=== PATIENT | female | born 1955 | race Caucasian/White ===

== ENCOUNTER 2023-06-29 08:09 | Inpatient (IN) | payer MEDICARE ==
[~2023-06-29] VITALS: Ht 165.1 cm; Wt 83.2 kg
[~2023-06-29 08:09] MED LIST: Alprazolam ER0.5 MG PO; Alprazolam Xr0.5 MG PO; BREZTRI AEROS10.7 GM INH; DELTASONE20 MG PO; ESCI20 PO; ESCITALOPRA5 MG/5 ML PO; ESCITALOPRAM TAB 20M; MIRT15 PO; TRELEGY ELLIPT1 EACH IH; TRELEGY ELLIPT1 EACH INH; Ventolin/Prove6.7 GM
[2023-06-29] MEDS ORDERED: Albuterol 2.5 MG/3 ML VIAL INH SCH (08:15)
[2023-06-29 08:28] LABS: BASOPHILS ABSOLUTE AUTO 0.05 K/mm3 (0.00-0.23); BASOPHILS PERCENT AUTO 0 % (0-2); EOSINOPHILS ABSOLUTE AUTO 0.14 K/mm3 (0.00-0.68); EOSINOPHILS PERCENT AUTO 1 % (0-6); Hematocrit 41.8 % (33.0-51.0); Hemoglobin 13.3 g/dL (11.5-16.0); IMMATURE GRAN ABSOLUTE AUTO 0.09 K/mm3 (0.00-0.10); IMMATURE GRAN PERCENT AUTO 1 % (0-1); LYMPHOCYTES ABSOLUTE AUTO 3.31 K/mm3 (0.84-5.20); LYMPHOCYTES PERCENT AUTO 30 % (21-46); MONOCYTES ABSOLUTE AUTO 0.63 K/mm3 (0.16-1.47); MONOCYTES PERCENT AUTO 6 % (4-13); Mean Corpuscular HGB 32.4 pg (26.0-34.0); Mean Corpuscular HGB Conc 31.8 g/dL (31.5-36.5); Mean Corpuscular Volume 102 fL (80-100); Mean Platelet Volume 9.1 fL (9.1-12.4); NEUTROPHILS PERCENT AUTO 63 % (41-73); Platelet Count 349 K/mm3 (150-400); RDW Coefficient Variation 12.3 % (11.7-14.2); RDW Standard Deviation 45.6 fL (35.1-46.3); Red Blood Cell Count 4.11 M/mm3 (3.80-5.20); White Blood Cell Count 11.22 K/mm3 (4.00-11.30)
[2023-06-29 08:42] LABS: Albumin, Blood 2.6 g/dL (3.4-5.0); Albumin/Globulin Ratio 0.6 (0.8-1.8); Bilirubin, Total 0.5 mg/dL (0.1-1.0); Bun/Creatinine Ratio 36.8 (12.0-20.0); Calcium, Blood 8.5 mg/dL (8.5-10.1); Creatinine, Blood 0.41 mg/dL (0.40-1.00); Globulin, Blood 4.1 g/dL (2.2-4.0); Magnesium, Blood 2.1 mg/dL (1.6-2.4); Potassium, Blood 3.7 mmol/L (3.5-5.5); Total Protein, Blood 6.7 g/dL (6.4-8.2)
[2023-06-29 08:42] LABS: Base Excess Venous 6.1 mmol/L; Bicarbonate Venous 26.4 mmol/L (24.0-30.0); PCO2 Venous 92.9 mmHg (38-42)
[2023-06-29 08:44] LABS: pH Blood Venous 7.18 (7.34-7.37)
[2023-06-29 09:36] LABS: Adenovirus Not Detected (NOT DETECT); Coronavirus 229E Not Detected (NOT DETECT); Coronavirus HKU1 Not Detected (NOT DETECT); Coronavirus NL63 Not Detected (NOT DETECT); Coronavirus OC43 Not Detected (NOT DETECT); SARS-Cov-2 (COVID-19), BioFire Detected (NOT DETECT)
[2023-06-29 09:37] LABS: Human Metapneumovirus Not Detected (NOT DETECT)
[2023-06-29 09:38] LABS: Bordetella pertussis Not Detected (NOT DETECT); Chlamydophila pneumoniae Not Detected (NOT DETECT); Human Rhinovirus/Enterovirus Not Detected (NOT DETECT); Influenza A/2009-H1 Not Detected (NOT DETECT); Influenza A/H1 Not Detected (NOT DETECT); Influenza A/H3 Not Detected (NOT DETECT); Influenza B Not Detected (NOT DETECT); Mycoplasma pneumoniae Not Detected (NOT DETECT); Parainfluenza Virus 1 Not Detected (NOT DETECT); Parainfluenza Virus 2 Not Detected (NOT DETECT); Parainfluenza Virus 3 Not Detected (NOT DETECT); Parainfluenza Virus 4 Not Detected (NOT DETECT); Respiratory Syncytial Virus Not Detected (NOT DETECT)
[2023-06-29] MEDS ORDERED: NS 1,000 ML IV SCH ×2 (10:00→10:05)
[2023-06-29] MEDS ORDERED: Dexamethasone Sod Phos 10 MG/ML 1ML VIAL IV ONE (10:05)
[2023-06-29] MEDS ORDERED: Polyethylene Glycol 3350 17 gm PO PRN (10:45)
[2023-06-29] MEDS ORDERED: NS 500 ML IV SCH (10:50)
[2023-06-29] MEDS ORDERED: FLU VACC QS2023-24(6MOS UP)/PF 60 MCG/0.5 ML SYRINGE IM SCH (10:50)
[2023-06-29] MEDS ORDERED: Ondansetron HCl 2 MG / ML 2ML Vial IV PRN (10:50)
[2023-06-29] MEDS ORDERED: Remdesivir (EUA) 200 MG in NS 250 ML IV ONE (11:05)
[2023-06-29 14:45] VITALS: BP 116/72
[2023-06-29] MEDS ORDERED: Albuterol 2.5 MG/3 ML VIAL INH PRN (15:15)
[2023-06-29] MEDS ORDERED: ALPRAZolam 0.25 MG Tab PO PRN (17:25)
--- NOTE | 2023-06-29 18:33 | NUR ---
PT ARRIVED TO U06 VIA GURNEY FROM ED ON 3L NC WITH BIPAP AT BEDSIDE. PT IS A&OX4, ABLE TO MAKE NEEDS KNOWN AND USE CALL LIGHT FOR NEEDS. ADMISSION DOCUMENTATION COMPLETED, SEE ASSESSMENT AND VS. IT IS NOTED THAT PT HAS WHAT APPEARS TO BE A STAGE 2 PRESSURE ULCER TO HER COCCYX, MEPLEX APPLIED, DR CHADWICK NOTIFIED. HOME MEDICATION LIST HAS BEEN RECONCILLED AND MEDICATIONS ORDERED BY DR CHADWICK. PT TOLERATES BEING OFF BIPAP FOR PERIODS OF TIME, BUT DOES USE THE BIPAP AT TIMES. ORDER NOTED FOR PT TO USE HER BREZTRI INHAILER FROM HOME IT IS NOT FORMULARY AT THIS TIME. SON MICHAELA CONTACTED VIA CELL PHONE, MESSAGE LEFT. NO ACUTE CHANGES SINCE ADMISSION. WILL CONTINUE TO MONITOR AND GIVE REPORT TO NOC SHIFT RN.
[2023-06-29 20:47] VITALS: BP 137/83
[2023-06-29] MEDS ORDERED: GLYCOPYRROLATE INH SCH (21:00)
[2023-06-29] MEDS ORDERED: Mirtazapine 15 MG SoluTab PO SCH (21:00)
[2023-06-29] MEDS ORDERED: FORMOTEROL INH SCH (21:00)
[2023-06-29] MEDS ORDERED: BUDESONIDE INH SCH (21:00)
[2023-06-29 23:55] VITALS: BP 137/85
[2023-06-30 03:38] LABS: Hemoglobin 12.5 g/dL (11.5-16.0); Mean Corpuscular HGB 32.3 pg (26.0-34.0); Mean Corpuscular HGB Conc 32.9 g/dL (31.5-36.5); Mean Corpuscular Volume 98 fL (80-100); Mean Platelet Volume 8.8 fL (9.1-12.4); Platelet Count 312 K/mm3 (150-400); RDW Coefficient Variation 12.6 % (11.7-14.2); RDW Standard Deviation 44.2 fL (35.1-46.3); Red Blood Cell Count 3.87 M/mm3 (3.80-5.20); White Blood Cell Count 7.67 K/mm3 (4.00-11.30)
[2023-06-30 03:41] VITALS: BP 135/75
[2023-06-30 03:56] LABS: Albumin, Blood 2.4 g/dL (3.4-5.0); Anion Gap 2 mmol/L (3-11); Blood Urea Nitrogen 14 mg/dL (8-24); Bun/Creatinine Ratio 39.7 (12.0-20.0); CO2, Blood 36 mmol/L (21-32); Calcium, Blood 8.6 mg/dL (8.5-10.1); Chloride, Blood 106 mmol/L (98-108); Creatinine, Blood 0.35 mg/dL (0.40-1.00); Glomerular Filtration Rate 111 (60-); Glucose, Blood 132 mg/dL (70-99); Magnesium, Blood 2.1 mg/dL (1.6-2.4); Phosphorus, Blood 2.8 mg/dL (2.5-4.9); Potassium, Blood 3.5 mmol/L (3.5-5.5); Sodium, Blood 140 mmol/L (136-145)
--- NOTE | 2023-06-30 06:22 | NUR ---
Pt with uneventful shift tonight, able to rest comfortably on BiPap and appears to have slept well. Gave 1 dose of Xanax at 0345 when awoken for 0400 vitals. At that time pt reports she feels much better than upon admit. Home inhaler brought in by son and was relabeled by Pharmacy. RT aware and giving as ordered. Pt continues on Clear Liquid diet, given rationale and pt compliant though hopes to be advance today. Denies significant pain this shift, please see full assessment for further details. No additional complaints/concerns at this time, will continue to monitor.
[2023-06-30 08:03] VITALS: BP 132/70
[2023-06-30] MEDS ORDERED: Cholecalciferol 1000 Unit Tablet (=25MCG) PO SCH (09:00)
[2023-06-30] MEDS ORDERED: Dexamethasone Sod Phos 10 MG/ML 1ML VIAL IV SCH (09:00)
[2023-06-30] MEDS ORDERED: Citalopram Hydrobromide 20 MG Tab PO SCH (09:00)
[2023-06-30] MEDS ORDERED: Enoxaparin 40 MG/0.4 ML SYR SC SCH (09:00)
--- NOTE | 2023-06-30 10:14 | NUR ---
ASSUMED CARE OF PT AT 0700 THIS AM. PT IS RESTING QUIETLY IN BED WITH BIPAP IN PLACE AT START OF SHIFT. APROX 0800 PT REQUESTING ANXIETY MEDICATION. PT REPORTS SOB. PT GIVEN AM MEDICATIONS AND PLACED BACK ON BIPAP. PTs HR NOTED TO INCREASE TO 140-150s THIS AM, PT IS FEELING SOB ONCE AGAIN. PT IS TRANSPORTED TO CT PE STUDY, SHE IS ABLE TO STAND AND TRANSFER FROM THE BED TO THE WHEELCHAIR. PT RETURNED TO ROOM SHORTLY AFTER AND HR RETURNS TO LOW 100s. AWAITING CT RESULTS AT THIS TIME. PLAN OF CARE REVIEWED WITH DR CHADWICK WHEN HE ROUNDED ON THE PT THIS AM.
[2023-06-30] MEDS ORDERED: Albuterol 2.5 MG/3 ML VIAL INH SCH (11:35)
[2023-06-30] MEDS ORDERED: Remdesivir (EUA) 100 MG in NS 250 ML IV SCH (12:00)
[2023-06-30 12:12] VITALS: BP 118/77
[2023-06-30 16:24] VITALS: BP 106/76
[2023-06-30] MEDS ORDERED: Acetaminophen 325 MG TABLET PO PRN (17:20)
[2023-06-30] MEDS ORDERED: Thiamine HCl 100 MG Tab PO ONE (17:30)
--- NOTE | 2023-06-30 18:08 | NUR ---
ASSUMED CARE OF PT AT 0700 THIS AM. PT ON BIPAP 10/5 30% ON AND OFF T/O THE DAY. PT ABLE TO TOLERATE 3L 02 VIA NC WHEN OFF BIPAP. PT NOTED TO HAVE A RUN OF WHAT APPEARED TO BE AFIB RVR FOR A SHORT PERIOD OF TIME THIS AM, IT RESOLVED ON IT'S OWN AND DID NOT REQUIRE INTERVENTION. PT ABLE TO TOLERATE CT PE TODAY AND RESULTS WERE NOTED TO BE NEGATIVE. PT CONTINUES TO TAKE XANAX FOR ANXIETY OFTEN AVAILABLE, ASKS FOR IT MULTIPLE TIMES T/O THE DAY WHEN IT IS NOT AVAILABLE. SPOKE WITH ENGINEER THIRD ASSISTANT THIS AFTERNOON ABOUT PT'S NUTRITION STATUS, NEW ORDERS PLACED. DR CHADWICK NOTIFIED OF PT'S C/O OF HEADACHE, NEW ORDERS PLACED AND PT MEDICATED W GOOD EFFECT. SEE DOCUMENTED VS AND ASSESSMENT. PT'S SON MICHAELA IN TO VISIT TODAY AND HAS BEEN UPDATED ON THE PT'S PLAN OF CARE. PT STATES THIS EVENING "I AM FEELING MUCH BETTER!" AND APPEARS TO BE IN GOOD SPIRITS. PT IS ABLE TO USE CALL LIGHT FOR NEEDS, BED IN LOWEST, LOCKED POSITION FOR SAFETY. CALL LIGHT IN REACH. WILL CONTINUE TO MONITOR AND GIVE REPORT TO NOC SHIFT RN.
[2023-06-30 19:18] VITALS: BP 129/67
[2023-06-30 23:01] VITALS: BP 133/77
[2023-07-01 04:16] VITALS: BP 127/77
[2023-07-01 05:27] LABS: Albumin, Blood 2.2 g/dL (3.4-5.0); Anion Gap 0 mmol/L (3-11); Blood Urea Nitrogen 22 mg/dL (8-24); Bun/Creatinine Ratio 42.7 (12.0-20.0); CO2, Blood 40 mmol/L (21-32); Calcium, Blood 8.5 mg/dL (8.5-10.1); Chloride, Blood 103 mmol/L (98-108); Creatinine, Blood 0.52 mg/dL (0.40-1.00); Glomerular Filtration Rate 101 (60-); Glucose, Blood 138 mg/dL (70-99); Magnesium, Blood 1.9 mg/dL (1.6-2.4); Phosphorus, Blood 3.1 mg/dL (2.5-4.9); Potassium, Blood 3.3 mmol/L (3.5-5.5); Sodium, Blood 140 mmol/L (136-145)
--- NOTE | 2023-07-01 06:32 | NUR ---
Pt O2 increased by RT per pt request despite O2 Sat 98% and above. Pt states "it just makes me feel better." Rested on BiPap several hours this shift, though awakens early requesting to retun to O2 via NC. Pt appears near her baseline though it is difficult to discern as pt with multiple reports of health status that can be construed as contradictory. Please see full assessment for futher details. No additional complaints or concerns at this time, will continue to monitor.
[2023-07-01 07:38] VITALS: BP 140/85
[2023-07-01] MEDS ORDERED: Potassium Chloride 20 MEQ TabCR PO ONE (08:05)
--- NOTE | 2023-07-01 08:09 | NUR ---
PER TELE PT HR IN 140'S. RN TO ROOM TO ASSESS. PT STATES "I NEED MY OXYGEN TURNED UP, I CAN'T BREATHE" RR 26, O2 SAT 96% ON 4L O2 NC. PT DECLINES BIPAP, BREATHING TX COMPLETE. PT EDUCATED ON DEEP BREATHING, AFTER A FEW MINUTES WITH RN IN ROOM PT STATES SHE IS FEELING LESS ANXIOUS AND APPEARS TO BE IMPROVING. RR 22, HR 120'S. PT EATING HER BREAKFAST AT THIS TIME.
[2023-07-01] MEDS ORDERED: Thiamine HCl 100 MG Tab PO SCH (09:00)
[2023-07-01] MEDS ORDERED: Albuterol 2.5 MG/3 ML VIAL INH SCH (10:43)
--- NOTE | 2023-07-01 10:53 | NUR ---
PT CALLED FOR BREATHING TX AT APROX 1030 FOR INCREASED SOB. RN TO ROOM. PT W/INCREASED ACCESORY MUSCLE USE. RR 28, O2 SAT 96% ON 4L O2 NC. RT NOTIFIED OF REQUEST. PER RT NOTE PT PLACED ON BIPAP. RN TO ROOM AT THIS TIME, APPEARS TO BE TOLERATING BIPAP WELL AT THIS TIME.
[2023-07-01] MEDS ORDERED: ALPRAZolam 0.25 MG Tab PO PRN (11:50)
--- NOTE | 2023-07-01 12:09 | NUR ---
PT BIPAP REMOVED AND PLACED ON 4L NC FOR MEAL.
[2023-07-01 12:48] VITALS: BP 142/81
[2023-07-01 18:30] VITALS: BP 140/78
--- NOTE | 2023-07-01 18:32 | NUR ---
SHIFT SUMMARY PT HAS REMAINED STABLE T/O SHIFT. ALTERNATES BETWEEN BIPAP AND 4LO2 NC THIS SHIFT. MEDICATED ONCE WITH XANEX FOR AIR HUNGER/ANXIETY. PT DOES WELL WITH VERBAL DISTRACTION T/O SHIFT FOR ANXIETY WELL. PUREWICK IN PLACE, URINE OUTPUT GOOD T/O SHIFT. SALINE LOCKED. TOLERATING REGULAR DIET WITH NO N/V. PT ENCOURAGED TO CONTINUE WITH BIPAP MUCH TOLERATED TO HELP WITH WORK OF BREATHING. PT VERBALIZED UNDERSTANDING AND IS RECEPTIVE.
[2023-07-01 19:50] VITALS: BP 133/82
--- NOTE | 2023-07-01 20:00 | NUR ---
ASSUMPTION OF CARE: THIS RN ASSUMED CARE OF PT AT APPROX 1900. PT ALERT, SITTING UP IN BED CONVERSING W/ FAMILY MEMBER. PT REQUESTS TO BE PLACED BACK ON BIPAP AT START OF SHIFT DUE TO "FEELING ANXIOUS" ABOUT AIR HUNGER. BIPAP PLACED BACK ON PT, SETTINGS 10/6 AND FIO2 30%. SPO2 >90%. OTHER VSS. XANAX PER EMAR FOR ANXIETY PRN. PUREWICK IN PLACE DRAINING LIGHT YELLOW URINE TO SUCTION. INDEPENDENTLY REPOSITIONING SELF IN BED. NO OTHER NEEDS AT THIS TIME. CALL LIGHT IN REACH.
[2023-07-01 23:13] VITALS: BP 140/80
[2023-07-02 03:56] VITALS: BP 148/79
[2023-07-02 04:36] LABS: Hemoglobin 12.6 g/dL (11.5-16.0); Mean Corpuscular HGB 32.5 pg (26.0-34.0); Mean Corpuscular HGB Conc 32.3 g/dL (31.5-36.5); Mean Corpuscular Volume 101 fL (80-100); Mean Platelet Volume 9.1 fL (9.1-12.4); Platelet Count 332 K/mm3 (150-400); RDW Coefficient Variation 13.1 % (11.7-14.2); RDW Standard Deviation 46.6 fL (35.1-46.3); Red Blood Cell Count 3.88 M/mm3 (3.80-5.20); White Blood Cell Count 5.71 K/mm3 (4.00-11.30)
[2023-07-02 04:52] LABS: Albumin, Blood 2.2 g/dL (3.4-5.0); Anion Gap 0 mmol/L (3-11); Blood Urea Nitrogen 18 mg/dL (8-24); Bun/Creatinine Ratio 41.1 (12.0-20.0); CO2, Blood 39 mmol/L (21-32); Calcium, Blood 8.6 mg/dL (8.5-10.1); Chloride, Blood 105 mmol/L (98-108); Creatinine, Blood 0.44 mg/dL (0.40-1.00); Glomerular Filtration Rate 105 (60-); Glucose, Blood 90 mg/dL (70-99); Magnesium, Blood 1.9 mg/dL (1.6-2.4); Phosphorus, Blood 2.8 mg/dL (2.5-4.9); Potassium, Blood 4.4 mmol/L (3.5-5.5); Sodium, Blood 140 mmol/L (136-145)
--- NOTE | 2023-07-02 05:10 | NUR ---
END OF SHIFT NOTE: NO ACUTE EVENTS OVERNIGHT. PT REMAINED ALERT, ORIENTED X4. ABLE TO CALL APPROPRIATELY TO COMMUNICATE NEEDS. PT REPORTS SIGNIFICANT IMPROVEMENT IN FEELINGS OF ANXIETY FOLLOWING XANAX ADMINISTRATION PER EMAR AT START OF SHIFT. HR 90-110'S, SINUS ON TELE. THIS RN NOTIFIED OF SHORT RUN OF SVT & 2 SHORT RUNS OF VTACH BY REPAIR CAMERAMAN; PT SLEEPING DURING THESE EVENTS. SBP 130-140'S, NO CHEST PAIN/PRESSURE. SPO2 >95% ON 3L VIA NC & BIPAP 10/6 FIO2 30%; ALTERNATED BETWEEN NC & BIPAP T/O NOC. AFEBRILE. INDEPENDENTLY REPOSITIONING SELF IN BED. PUREWICK IN PLACE, DRAINING YELLOW URINE TO SUCTION. NO BM'S OVERNIGHT. NO OTHER NEEDS AT THIS TIME. CALL LIGHT IN REACH. WILL REPORT TO ONCOMING RN.
[2023-07-02 08:16] VITALS: BP 135/65
--- NOTE | 2023-07-02 09:24 | NUR ---
AM NOTE: PATIENT ALERT AND ORIENTED. PERRLA, DENIES NUMBNESS/TINGLING. CACHETIC. OVERALL WEAK BUT ABLE TO TURN SELF IN BED. Q2 TURNING AND NEEDED. UP WITH SBA. FOLLOWING ALL COMMANDS. ON 2.5-3L NASAL CANNULA SATING MID 90'S. LUNGS SOUNDING DIMINISHED AND AT TIMES TIGHT. RR 20-30 THIS AM. RT IN TO GIVE BREATHING TREATMENT. PATIENT REPORTS WEARING 2-2.5L NASAL CANNULA AT HOME. PATIENT USING BIPAP NEEDED FOR RESCUE, POST BREAKFAST PATIENT SOB AND NEEDING BIPAP TO HELP RECOVER. BIPAP SETTINGS / AT 30% FIO2. TELE SHOWING SR/ST WITH HR 90-110'S AT REST. UP TO 150'S WITH ANXIETY AND SOB. DENIES CHEST PAIN/PRESSURE/PALPITATIONS. IV'S SALINE LOCKED. NO EDEMA NOTED. PPP. SC LOVENOX GIVEN THIS AM PER EMAR. SBP 130-140'S. BOWEL TONES PRESENT IN ALL 4 QUARDRANTS. DENIES PAIN UPON ABDOMINAL PALPATION. EATING BREAKFAST THIS AM, DENIES ANY SWALLOWING ISSUES. DENIES NAUSEA. DRINKING WATER AND ENSURE. PUREWICK IN PLACE, URINE CLEAR/YELLOW. ATTENDS IN PLACE. PRESSURE SORE ON COCCYX, PRESENT ON ADMIT. DRESSING CHANGED AND CREAM APPLIED. CALL LIGHT IN REACH. PATIENT WEARING BIPAP AT THIS TIME, RESTING IN BED WATCHING TV. DR. CHADWICK BY FOR PROVIDER VISIT. NO NEW ORDERS FOR THIS RN TO PLACE. PATIENT DENIES NEEDS AT THIS TIME.
[2023-07-02 11:04] VITALS: BP 115/66
--- NOTE | 2023-07-02 11:38 | NUR ---
PATIENT WEARING BIPAP MOST OF MORNING, REQUESTING BREATHING TREATMENT THIS AFTERNOON. POST BREATHING TREATMENT PATIENT STATES "I ALREADY FEEL SO MUCH BETTER". LUNGS SOUNDS CONTINUE TO BE DIMINISHED. AFTERNOON VITALS STABLE. TELE SHOWING ST WITH HR 110-120'S. CALL LIGHT IN REACH. PATIENT DENIES NEEDS AT THIS TIME.
[2023-07-02 16:20] VITALS: BP 105/71
--- NOTE | 2023-07-02 18:40 | NUR ---
NO ACUTE CHANGES. PATIENT WEARING BIPAP MOST OF SHIFT. SOB AFTER MEALS AND REQUESTING BREATHING TREATMENTS. UP TO BSC TO VOID, BOWEL MOVMENT THIS SHIFT. REMAINS ON 2-2.5L NASAL CANNULA WHEN OFF BIPAP. DENIES PAINS. PATIENT ABLE TO TURN SELF IN BED. Q2 TURNING AND NEEDED. REQUESTING XANAX THIS EVENING. CALL LIGHT IN REACH. DENIES NEEDS AT THIS TIME.
[2023-07-02 19:43] VITALS: BP 134/77
--- NOTE | 2023-07-02 21:16 | NUR ---
ASSUMPTION OF CARE: THIS RN ASSUMED CARE OF PT AT APPROX 1900. PT ALERT, SITTING UP IN BED W/ BIPAP IN PLAC; SETTINGS 10/6 AND FIO2 30%. SPO2 >90%. OTHER VSS. PUREWICK IN PLACE DRAINING LIGHT YELLOW URINE TO SUCTION. INDEPENDENTLY REPOSITIONING SELF IN BED. NO OTHER NEEDS AT THIS TIME. CALL LIGHT IN REACH.
[2023-07-03] VITALS (7 sets, daily range): BP systolic 100–132; BP diastolic 62–86
[2023-07-03 03:53] LABS: Albumin, Blood 2.2 g/dL (3.4-5.0); Anion Gap 2 mmol/L (3-11); Blood Urea Nitrogen 20 mg/dL (8-24); Bun/Creatinine Ratio 61.2 (12.0-20.0); CO2, Blood 39 mmol/L (21-32); Calcium, Blood 8.4 mg/dL (8.5-10.1); Chloride, Blood 102 mmol/L (98-108); Creatinine, Blood 0.33 mg/dL (0.40-1.00); Glomerular Filtration Rate 112 (60-); Glucose, Blood 87 mg/dL (70-99); Magnesium, Blood 2.1 mg/dL (1.6-2.4); Phosphorus, Blood 3.3 mg/dL (2.5-4.9); Potassium, Blood 4.3 mmol/L (3.5-5.5); Sodium, Blood 139 mmol/L (136-145)
--- NOTE | 2023-07-03 04:59 | NUR ---
END OF SHIFT NOTE: NO ACUTE EVENTS OVERNIGHT. PT RESTED WELL ON BIPAP FOR MAJORITY OF NIGHT, CURRENTLY RESTING W/ NC IN PLACE FOR BREAK. VSS. PT ABLE TO REPOSITION SELF IN BED. PUREWICK IN PLACE & CHANGED THIS AM. NO XANAX HAS BEEN ADMINISTERED THIS SHIFT OF TIME OF THIS NOTE. NO OTHER NEEDS AT THIS TIME. CALL LIGHT IN REACH. WILL REPORT TO ONCOMING RN.
--- NOTE | 2023-07-03 08:35 | NUR ---
AM NOTE: PATIENT ALERT AND ORIENTED. WEARING BIPAP UPON SHIFT START AND STATES SHE HAD A EPISODE LAST NIGHT OF ANXIETY AND SHORTNESS OF BREATH. MOVING ALL EXTREMITIES, TURNING SELF IN BED AND USING CALL LIGHT FOR NEEDS. PERRLA. DENIES NUMBNESS/TINGLING. TELE SHOWING SINUS TACH WITH HR 100-110'S AT REST. HR UP TO 150'S WITH ANXIETY AND SOB. DENIES CHEST PAIN/PRESSURE/PALPITATIONS. SBP 100'S. SC LOVENOX GIVEN PER EMAR. PPP. NO EDEMA NOTED. IV'S SALINE LOCKED. ON 2.5L WHEN OFF BIPAP. PATIENT WEARING BIPAP MOST OF THE TIME, FOR COMFORT AND RESCUE RELIEF WHEN FEELING SHORT OF BREATH. BIPAP 10/6 AND 30% FIO2. RT IN FOR BREATHING TREATMENTS. LUNGS SOUNDS DIMINISHED THROUGHOUT. BOWEL TONES PRESENT. PATIENT HAVING INCONT EPISODES OF URINE, INTERMIT USE OF PUREWICK. ATTENDS IN PLACE. UP TO BSC WITH STAND AND PIVOT. EATING BREAKFAST AT THIS TIME. THIS RN HAD DISCUSSION WITH PATIENT ABOUT GOING HOME AND HOW SHE SEES HERSELF MANAGING HER SYMPTOMS. THIS RN DISCUSSED PALLIATIVE CARE AND PATIENT INTERSETED IN TALKING WITH PALLIATIVE CARE NURSE ABOUT QUALITY OF LIFE AND SYMPTOM MANAGEMENT. PALLIATIVE CARE CALLED AND MESSAGE LEFT.
--- NOTE | 2023-07-03 17:39 | NUR ---
SHIFT SUMMARY: NO ACUTE CHANGES THROUHGOUT SHIFT. MEDICATED X1 FOR ANXIETY. WEARING BIPAP MOST OF SHIFT PER PATIENT REQUEST DUE TO COMFORT. RESPIRATORY IN TO GIVE BREATHING TREATMENTS. UP TO BSC TO VOID WITH SBA. SON AT BEDSIDE AT THIS TIME VISITING. CALL LIGHT IN REACH.
[2023-07-04 03:30] VITALS: BP 150/81
--- NOTE | 2023-07-04 06:54 | NUR ---
END OF SHIFT NOTE: NO ACUTE EVENTS OVERNIGHT. PT RESTED WELL ON BIPAP FOR MAJORITY OF NIGHT, MORE ANXIOUS THAN PREVIOUS SHIFTS. VSS. PT ABLE TO REPOSITION SELF IN BED. PUREWICK IN PLACE. XANAX FOR ANXIETY PER EMAR. NO OTHER NEEDS AT THIS TIME. CALL LIGHT IN REACH. WILL REPORT TO ONCOMING RN.
[2023-07-04 07:38] VITALS: BP 96/63
[2023-07-04] MEDS ORDERED: Enoxaparin 30 MG/0.3 ML SYR SC SCH (09:00)
[2023-07-04] MEDS ORDERED: ALPRAZolam 0.25 MG Tab PO PRN (09:20)
--- NOTE | 2023-07-04 11:31 | NUR ---
AM NOTE PT IS A&OX4, CALLS APPROPRIATELY, AND MAKES HER NEEDS KNOWN. SHE IS A 1P ASSIST TO THE BSC OR CHAIR. WHEN SHE GOT UP TO THE BSC W/ HEAT WELDER PLASTICS RUMEN THE PT DESATURATED TO 87% WHILE ON THE BIPAP 10/6 @ 25%. RUMEN HEAT WELDER [employer]LAST[employer] STATED IT TOOK THE PT 3-4MINUTES TO RECOVER. THE PT HAS BEEN ON BIPAP MOST OF THE MORNING BUT TAKES BREAKS FOR MEALS. WHEN ON THE NC SHE IS 2.5LNC. SP02 REMAINS >93%. THE PT STATES SHE IS CONSTANTLY FEELING SOB, BUT IT IS NOT WORSENING. AT TIMES THE PT FEELS A LITTLE ANXIOUS AND SHE IS BEING MEDICATED PER EMAR. HER XANAX ORDER WAS CHANGED TO Q6P INSTEAD OF Q8P. SHE HAS RECIEVED BREATHING TREATMENTS SCHEDULED AND PRN. ON TELE THE PT HAS BEEN ST 100'S-110'S, BP SOFT, BUT MAP REMAINS >65. THE PT DID RECIEVE A BEDBATH THIS MORNING, AND HAS BEEN GETTING UP TO THE BSC. PT HAS NO COMPLAINTS THIS MORNING. SEE NOTES FOR UPDATES.
[2023-07-04 15:51] VITALS: BP 121/71
--- NOTE | 2023-07-04 16:26 | NUR ---
Apurva is a 68 y.o female with chronic COPD and new Covid diagnosis. She is currently BiPAP dependent. We met today and talked about code status. She states she wouldn't want to be intubated or have CPR, but states she needs to discuss this with her kids before making any changes. Spoke to pt's son Cooper, he states he is aware of his mom's "fragility", and he has concerns about her living alone, and concerned about her current quality of life, but states she is very private and won't share much normally with him. He is planning to come see pt this evening, and does plan on discussing goals of care with her. Plan to see pt again tomorrow. Checked with SUPERVISOR DOPING, awaiting to hear if pt has applied for [employer] medicaid before, as son thinks she has, but pt states she doesn't know.
--- NOTE | 2023-07-04 18:05 | NUR ---
END OF SHIFT SUMMARY PT REMAINS A&OX4, AND CALLS APPROPRAITELY. NO CHANGES ON TELE. THE PT DID HAVE SOME ANXIETY ABOUT 1730 AND HAD TO BE MEDICATED W/ XANAX PER EMAR. HER BIPAP SETTINGS REMAIN AT 10/6 @ 25% AND WHEN EATING SHE IS ON 4LNC. SHE REQUESTED MORE OXYGEN AT DINNER BECAUSE OF THE ANXIETY EPISODE. THE PT DID MEET WITH PALLIATIVE CARE TODAY. JERRICA DEGROOT BEGAN TALKING TO THE PT ABOUT CODE STATUS TODAY. THE PT REMAINS FULL CODE AT THIS TIME. NO OTHER EVENTS THIS AFTERNOON. SEE NOTES FOR ANY UPDATES.
[2023-07-04 20:28] VITALS: BP 111/67
[2023-07-04 21:47] LABS: Base Excess Venous 15.7 mmol/L; Bicarbonate Venous 37.1 mmol/L (24.0-30.0); PCO2 Venous 58.2 mmHg (38-42); pH Blood Venous 7.44 (7.34-7.37)
--- NOTE | 2023-07-04 22:55 | NUR ---
ASSUMPTION OF CARE: THIS RN ASSUMED CARE OF PT AT APPROX 1900, REPORT FROM TRINH DEGROOT. PT ALERT, ORIENTED X4. SITTING UP IN BED ON NC. THIS RN CALLED TO ROOM SHORTLY AFTER SHIFT CHANGE TO PLACE BIPAP; SETTINGS 01/07, FIO2 25%. SPO2 >90%. HR 100'S, SINUS ON TELE. BP STABLE, MAP >65. DENIES CHEST PAIN/PRESSURE. RR 20-30'S; ACCESSORY MUSCLE USE NOTED. CALL PLACED TO MD, REPEAT VBG OBTAINED. PT RECEIVING BREATHING TX W/ RT. PT'S SON TO BEDSIDE THIS EVENING. PT REQUESTED TO TALK WITH THIS RN IN MORE DEPTH REGARDING PALLIATIVE CARE CONVERSATION. PT REQUESTED ADDITIONAL INFORMATION REGARDING CPR & INTUBATION. EXTENSIVE EDUCATION WAS PROVIDED. PT STATES "I'M NOT SURE BUT I'M LEANING TOWARDS NO CPR" THEN STATES "I WOULD DEFINITELY WANT INTUBATION". THIS RN ALLOWED PT TO DISCUSS FURTHER W/ SON FOR APPROX 1 HR. PLAN TO F/U WITH PALLIATIVE TOMORROW.
[2023-07-04 23:21] VITALS: BP 128/70
[2023-07-05 03:44] VITALS: BP 102/66
--- NOTE | 2023-07-05 04:50 | NUR ---
END OF SHIFT NOTE: NO ACUTE EVENTS OVERNIGHT. PT HAS REMAINED ON BIPAP 01/07 25% FIO2. PT HAS REPORTED ADEQUATE ANXIETY CONTROL THUS FAR W/O ADMINISTRATION OF XANAX. VSS. SEE SHIFT ASSESSMENT & PREVIOUS NOTE FOR ADDITIONAL DETAILS. NO OTHER NEEDS AT THIS TIME. CALL LIGHT IN REACH.
--- NOTE | 2023-07-05 05:41 | NUR ---
UPDATE: PT CALLED THIS RN TO ROOM W/ C/O AIR HUNGER & FEELINGS OF ANXIETY. RT TO BEDSIDE TO ASSESS WELL. XANAX ADMINISTERED PER EMAR. BIPAP REMAINS IN PLACE, SPO2 >90%. RR 20'S. NO OTHER NEEDS AT THIS TIME.
[2023-07-05 05:48] VITALS: BP 172/89
[2023-07-05 06:02] VITALS: BP 151/68
[2023-07-05 09:47] VITALS: BP 117/64
--- NOTE | 2023-07-05 14:34 | NUR ---
REPORT CALLED TO FREDRICK ON MEDICAL FLOOR. TRILOGY UP WITH PATIENT, BELONGINGS WITH PATIENT. PT HAS BEEN ON 2.5L O2 VIA NASAL CANNULA WHEN EATING MEALS AND DUE TO ANXIETY HAS ASKED TO PLACED BACK ON BIPAP. HER SPO2 REMAINS 95-97% ON 2.5L O2, SHE IS VERY PLEASANT AND COOPERATIVE AND DOES CALM EASILY TO VERBAL REASSURANCE BUT PREFERS TO BE ON BIPAP IT MAKES HER FEEL MORE SAFE. SHE HAS BEEN TREATED FOR ANXIETY WITH XANAX WHICH SEEMS TO WORK WELL FOR ANXIETY. LUNG SOUNDS ARE DIMINISHED T/O ALL LUNG GREY. SHE IS TOELRATING M SERIES BIPAP WELL.
--- NOTE | 2023-07-05 15:34 | NUR ---
RECEIVED REPORT FROM ZANE BAKER. PT ARRIVED FROM U A&OX4, ANXIOUS. COMFORTABLE IN BED. REPORTS THAT SHE FEELS LIKE NO ONE LISTENS TO HER WHEN SHE FEELS LIKE SHE NEEDS MORE OXYGEN. SHE ASKED FOR HER NEXT XANAX DOSE TIME TO BE WRITTEN UP ON THE BOARD SO IT DOES NOT GET FORGOTTEN.
--- NOTE | 2023-07-05 15:49 | NUR ---
The patient clarified her position on code status today, with Dr. Webster and then again with bedside and palliative RN's. She would be okay with intubation, but not chest compressions. Will change code status in chart. Spoke to pt's son Cooper again today, he states he called [facility] today, requests re-opening prison medicaid. Per RT, pt continues with air hunger, more than low 02 saturations, and would benefit from low dose Roxanol. Will call Dr. Webster regarding this.
[2023-07-05] MEDS ORDERED: Morphine Sulfate 20 MG/1ML 1 ML Oral Syringe SL PRN (16:05)
--- NOTE | 2023-07-05 16:08 | NUR ---
To clarify, the patient does not want chest compressions. She would however accept use of pressers and/or intubation. She indicates she would try intubation for a trial period, but would not want trachiostomy.
[2023-07-05 20:11] VITALS: BP 152/76
[2023-07-06 03:34] VITALS: BP 106/65
--- NOTE | 2023-07-06 08:34 | NUR ---
SHIFT SUMMARY PT IS A&OX4, ANXIOUS BUT COOPERATIVE. VSS ON 3L NC, OR BIPAP. PT GOES BACK AND FORTH WITH BOTH DEPENDING ON HOW SHE IS FEELING. DENIES PAIN. ROXANOL GIVEN AT BED TIME FOR AIR HUNGER, STEFFANIE STATES GOOD RESULTS WITH THIS. SHE ALSO REQUESTED XANAX THIS MORNING. WICKING SYSTEM IN PLACE DRAINING YELLOW URINE. NO BM THIS SHIFT. BED IN LOWEST POSITION, CALL LIGHT WITHIN REACH. ENHANCED PRECAUTIONS MAINTAINED FOR POSITIVE COVID.
[2023-07-06 08:43] VITALS: BP 108/61
[2023-07-06 17:33] VITALS: BP 119/65
[2023-07-06 19:41] VITALS: BP 136/86
--- NOTE | 2023-07-06 20:53 | NUR ---
SHIFT SUMMARY PATIENT WITH ANXIETY THROUGHOUT DAY, RELIEVED BY XANAX AND ROXANOL. BED IN LOW POSITION, CALL LIGHT IN REACH. PATIENT ABLE TO CALL SHE DID GET UP FOR SHOWER WITH MICHAELLE LOVE TODAY AND TWICE UP TO COMMODE.SHE IS ABLE TO MAKE NEEDS KNOWN.
[2023-07-07 02:13] VITALS: BP 105/62
--- NOTE | 2023-07-07 04:32 | NUR ---
334 Shift Summary Patient is a 68 year old female admitted with respiratory failure due to Covid. Her other diagnosis are COPD, Anxiety, Depression, HTN, and breast cancer. She is alert and oriented. She does become anxious at times but her prn xanax is effective. She is on oxygen per nasal cannula at 3L and has a Bipap machine. She has a purwick in place with yellow urine noted in cannister. Bed is in low position with call light in reach. Side rails up x 2.
[2023-07-07 07:45] VITALS: BP 172/78
--- NOTE | 2023-07-07 07:59 | NUR ---
DURING BEDSIDE REPORT PATIENT BECAME ANXIOUS AND SHOWING SIGNS OF RESPIRATORY DISTRESS. RT WAS CALLED AND AN ADDITIONAL BREATHING TREATMENT WAS GIVEN AND SETTINGS WERE ADJUSTED ON V30 BIPAP 14/8 9L BLEED IN. ATIVAN GIVEN WELL. BLUETOOTH CONTINOUS BI OX SET UP FOR CLOSER O2 MONITORING ON PATIENT. PER RT IF PATIENT OXYGEN LEVELS DROP INTO THE 80'S AGAIN AND SHE SUSTAINS SHE WILL NEED TO BE TRANSFERRED TO PCU FOR A V60 BIPAP. THE PLAN IS CONTINUE THE PATIENT ON HER CURRENT SETTINGS; HOLD HER BREAKFAST. IF BLEED O2 CAN BE BROUGHT BACK DOWN TO 5L WILL TRY GIVING THE PATIENT FOOD. CURRENT O2% IS 96.
--- NOTE | 2023-07-07 13:21 | NUR ---
Met with pt today about goals of care. We discussed her going home, along with concerns of her going home alone. She states she knows she wouldn't do well home alone. We also discussed correction as an option as well as returning home with hospice. She immediately stated she wants to go home with hospice. She then stated she's "tired of fighing to breathe." We further discussed, and also discussed this with pt's son Cooper. Cooper is on board with this plan, and will continue attempting to reach out to his sister, pt's daughter. Cooper has agreed to assist patient at home, and is currently deciding between hospice agencies, as the patient requested. He is going to call back this afternoon with a choice. Dr. Webster gave v.o. for comfort care, as requested by patient.
[2023-07-07] MEDS ORDERED: Scopolamine Hydrobromide Patch TOP PRN (13:50)
[2023-07-07] MEDS ORDERED: Atropine Sulfate 1% Opth Soln 2ML BTL SL PRN (13:50)
[2023-07-07] MEDS ORDERED: LORazepam 1 MG Tab PO PRN (13:50)
[2023-07-07] MEDS ORDERED: Morphine Sulfate 20 MG/1ML 1 ML Oral Syringe SL PRN (13:50)
--- NOTE | 2023-07-07 16:39 | NUR ---
SHIFT SUMMARY: PT IS AN A&OX4/SBA HERE FOR RESPIRATORY FAILURE SECONDARY TO COVID19. PATIENT HAS COPD AND RESPIRATORY EFFORTS ARE INCREASING. SHE HAD A RESPIRATORY DISTRESS EVENT THIS MORNING THAT MAXED HER OUT ON HER BIPAP. RESPIRATORY DISTRESS IMPROVED AFTER BIPAP SETTINGS ADJUSTED AND ATIVAN GIVEN. PATIENT MET WITH PALLATIVE CARE TODAY AND DECISION TO PLACE PATIENT ON COMFORT CARE WAS MADE AND INTIATED. PATIENT HAS BEEN DOING WELL ON 5 L NC O2 SINCE STARTING COMFORT CARE MEDICATION REGIMEN. SHE MAKES HER NEEDS KNOWN. SHE IS IN BED, CALL LIGHT WITHIN REACH, NO SIGNS OR SYMPTOMS OF DISTRESS. PLAN OF CARE ONGOING.
--- NOTE | 2023-07-08 04:53 | NUR ---
SHIFT SUMMARY PATIENT IS A 68 YEAR OLD FEMALE ADITTED ON 06/29/23 FOR ACUTE RESPIRATORY FAILURE RT COVID. SHE IS ALERT AND ORIENTED BUT FORGETFUL. SHE IS ON COMFORT CARE. SHE HAS OXYGEN PER NASAL CANNULA AT 5 L. SHE IS ON BIPAP MOST OF THE NIGHT. SHE ACCIDENTALLY PULLED OUT HER IV DURING THE NIGHT. BED IS IN LOW POSITION WITH CALL LIGHT IN REACH AND BED ALARM ON.
[2023-07-08] MEDS ORDERED: dexAMETHasone 4 MG TAB PO SCH (09:00)
--- NOTE | 2023-07-08 17:31 | NUR ---
SHIFT SUMMARY: NO EVENTS WITH THE PATIENT THROUGHOUT THE SHIFT. NO RESPIRATORY DISTRESS HAS REMAINED ON 5L NC MAINTAINING OXYGEN SATURATION GREATER THAN 90%. COMFORT CARE MEDICATION ON BOARD WITH GOOD BENEFIT. PATIENT TOLERATING WELL. APPEARING MORE LETHARGIC WITH COMFORT MEDS; BUT STILL RESPONSIVE TO VERBAL STIMULI AND INTERACTIVE WITH STAFF. KARO JENNINGS VISITED TODAY AND PREPARING PATIENT'S HOME FOR HOSPICE' POSSIBLE D/C TUESDAY OR TUESDAY. PATIENT IS IN BED, RESPIRATIONS EVEN AND UNLABORED; O2 96% HR 84. CALL LIGHT WITHIN REACH, NO SIGNS OR SYMPTOMS OF DISTRESS. PLAN OF CARE ONGOING.
--- NOTE | 2023-07-09 06:14 | NUR ---
SHIFT SUMMARY PATIENT IS A 68 YEAR OLD FEMALE ADMITTED WITH RESPIRATORY FAILURE RT COVID. SHE IS ALERT AND ORIENTED. SHE USES ACCESSORY MUSCLES TO BREATH AND IS ON OXYGEN AT 5 L PER NC. SHE IS ON COMFORT CARE AND IS SUPPOSE TO GO HOME ON HOSPICE TUESDAY OR TUESDAY. SHE GETS VERY ANXIOUS AT TIMES. SHE HAS PRN ATIVAN AND PRN TIGIST FOR AIR HUNGER. THIS WORKS WELL TO CONTROL HER ANXIETY AND EASE HER BREATHING. BED IS IN LOW POSTITION WITH CALL LIGHT IN REACH.
[2023-07-09] MEDS ORDERED: Albuterol HFA200 ACT/6.7 GM INH INH SCH (07:10)
--- NOTE | 2023-07-09 18:04 | NUR ---
SUMMARY- PT ANXIOUS AT THE BEGINNING OF THE SHIFT, BUT ATIVAN AND ROXANOL HELPED. PT MEDICATED WITH ROXANOL X3 FOR LABORED BREATHING THIS SHIFT. PT ORIENTED TO PLACE AND PERSON ONLY. THIS RN NOTICED INCREASED CONFUSION THE SHIFT PROGRESSED. PT DENIES ANY PAIN.
--- NOTE | 2023-07-10 03:34 | NUR ---
MEDICAL BILLING COORDINATOR SUMMARY REMAINS ON COMFORT CARE. RESPS WERE RAPID AND SHALLOW NEAR SHIFT START, CALLING OUT. NURSE CAME IN AND PT STATED WANTED HELP BUT DIDNT SAY HOW THE NURSE COULD HELP HER. NURSE OFFERED ANXIETY MED AND ROXINAL. PT AGREED, THEN WHEN NURSE OFFERED MEDS, SHE REFUSED AND ACCUSED NURSE OF FORCING THE MEDS ON HER. CALL PLACED TO RT FOR TREATMENT, TREATMENT GIVEN, THEN PT, BRATHING MORE CALMLY, SEEMED TO HAVE A CHANGE OF AFFECT AND BECAME MORE RECEPTIVE AND TOLERATED MEDS. O2 CONTINUES AT 5-7L/MIN PER NC. MEDS WERE EFFECTIVE, RESTING QUIETLY SINCE. RAILS UP X 2 AND CALL LIGHT IN REACH FOR SAFETY. BED IN LOW POSITION. ISOLATION PRECAUTIONS FOR COVID CONTINUE. WILL CONTINUE TO MONITOR.
[2023-07-10 07:27] VITALS: BP 118/63
--- NOTE | 2023-07-10 18:33 | NUR ---
SUMMARY- PT IS AAOX1-2 NOW BY THE END OF THE SHIFT. PT ORIENTED TO SELF AND PLACE INTERMITTENTLY. X1 ASSIST TO THE BSC. PT CANNOT FEED HERSELF NOW-SHE IS A FEEDER-HAS MINIMAL APPETITE. PT DENIES PAIN THIS SHIFT, BUT PT IS REQUIRING ROXANOL FOR LABORED BREATHING. PT IS ALSO REQUIRING ATIVAN FOR ANXIETY. PT IS INTERMITTENTLY AGGRESSIVE AND UPSET. PT IS HALLUCINATING AND CONFUSED ABOUT HER SITUATION REGARDLESS OF THIS RN/OTHER STAFF REORIENTING HER. PT IS ON 7 L HF NC WHEN NOT ON HER CPAP.
--- NOTE | 2023-07-11 04:24 | NUR ---
CLAM GROWER SUMMARY REMAINS ON COMFORT CARE. CONFUSION APPEARS TO BE GETTING WORSE. INTERMITTENT CALLING OUT, REFUSING MEDICATIONS AND TRYING TO CLIMB OUT OF BED, CAUSING ALARMS TO GO OFF AND NOT BEING ABLE TO UNDERSTAND REDIRECTIONS, ETC. RESPS INCREASE AND DECREASE TO HER ANXIETY EPISODES. RT TREATMENTS PT REFUSING AND THEN MAKING VERBAL STATEMENTS THAT DO NOT CORRELATE WITH DISCUSSIONS WITH STAFF. HAS BEEN RESTING INTERMITTENTLY OTHERWISE. ISOLATION PRECAUTIONS CONTINUE FOR COVID. DISCUSSED POSSIBLE TRANSFER OF PT TO SCU FOR CLOSER OBSERVATION. CALL LIGHT IN REACH
[2023-07-11] MEDS ORDERED: OLANZapine 10 MG Vial IM PRN (05:05)
[2023-07-11] MEDS ORDERED: dexAMETHasone 4 MG TAB PO SCH (09:00)
[2023-07-11] MEDS ORDERED: Haloperidol Lactate 2 MG/ML Conc 1ML Dose PO PRN (10:05)
[2023-07-11 10:51] LABS: Base Excess Venous 24.9 mmol/L; Bicarbonate Venous 44.8 mmol/L (24.0-30.0); PCO2 Venous 93.2 mmHg (38-42); pH Blood Venous 7.34 (7.34-7.37)
--- NOTE | 2023-07-11 14:01 | NUR ---
Pt remains on comfort care. She had an episode of increased confusion and agitation last night, and was moved into the secured vanessa for closer monitoring. Son was at bedside when I checked in earlier. Haldol order placed for her per Dr. Garza
[2023-07-11 16:11] VITALS: BP 132/69
--- NOTE | 2023-07-11 16:46 | NUR ---
SHIFT SUMMARY PT ON COMFORT CARE, AOX2. AGITATED THIS AFTERNOON, MEDICATED PER THE EMAR. ALSO NOTICED INCREASED EFFORT TO BREATH, ALSO MEDICATED PER THE EMAR. PT IS A 1 ASSIST TO THE BSC WHEN CONTINENT. NO BM FOR A COUPLE DAYS, MEDICATED PER THE EMAR. PT DOES ATTEMPT TO GET OOB ON HER OWN, CHAIR ALARM IN PLACE AND EFFECTIVE. FAMILY IN AND OUT OF THE PT'S ROOM ALL DAY. CALL LIGHT WITHIN REACH, BED IN THE LOWEST POSITION. WILL REPORT TO ONCOMING NURSE.
[2023-07-11] MEDS ORDERED: Albuterol HFA200 ACT/6.7 GM INH INH PRN (22:20)
--- NOTE | 2023-07-11 22:22 | NUR ---
PT ANXIOUS/IMPULSIVE SHE REFUSED HER NIGHT MEDS. I DID THEN PLACE THEM IN APPLESAUCE AND TRY TO ADMINISTER THEM AGAIN TO HER TO NO AVAIL. SHE DID CLAMP HER JAW SHUT AND TURN HER HEAD AWAY. I THEN DID ADMINISTER PO HALDOL LIQUID AND PO ROXANOL LIQUID. HOWEVER, SHE REMAINED IMPULSIVE AND AGITATED. I INFORMED CHARGE. LATER WHEN SHE CONTINUED TO BE RESTLESS, WE CRUSHED HER REMERON AND ADMINISTERED IT PO MIXED WITH A FEW DROPS OF WATER. I WILL CONTINUE TO MONITOR TO SEE IF THIS IS SUCCESSFUL.
--- NOTE | 2023-07-12 04:43 | NUR ---
SHIFT SUMMARY ADMITTED FOR RESPIRATORY FAILURE. COVID+. COMFORT CARE. PLAN IS TO DC HOME WITH FAMILY ON HOSPICE. SHE IS ON 5 LPM HIGH FLOW O2. SHE IS A&O X SELF. IMPULSIVE, WEAK, YELLS OUT. HIGH FALL RISK. SITTER IN PLACE THIS SHIFT DUE TO FREQUENT ATTEMPTS TO EXIT THE BED. ANXIETY AND PAIN MEDICATION WERE INEFFECTIVE. SHE CAN NOT BE REDIRECTED.
[2023-07-12] MEDS ORDERED: Haloperidol Lactate 2 MG/ML Conc 1ML Dose PO PRN (14:35)
--- NOTE | 2023-07-12 16:07 | NUR ---
Spiritual care visit conducted. Patient is resting and has her dtr present. Her dtr puts her son on speaker phone after I introduce myself. I conduct a life review of patient as family explain about her funny and upbeat personality but also share about the family unit complications. Much reconciliation has happened recently that has brought the family much closer to each other. The family concern was that their mom had some guilt and worry that she was holding on to and wanted me to pray for her. They tell me that she had a strong belief in God but was not a "yazidi goer." I asked the patient if I could say a prayer for her and she said "yes" and sat up in bed. I provided a last rites kind of prayer and one for comfort and strength for the family. Patient opened her eyes and nodded affirmingly after the prayer when asked if it was okay. She appeared more peace and the dtr was moved with emotion by the prayer and voiced her great appreciation for the prayer and the spiritual care visit. I will continue to remain available to patient and family.
--- NOTE | 2023-07-12 17:58 | NUR ---
SHIFT SUMMARY PT ON COMFORT CARE. MEDICATED PER THE EMAR. SHE HAS APPEARED MUCH MORE COMFORTABLE THIS SHIFT, LESS EFFORT TO BREATH. SHE SLEEPS OFTEN BUT AWAKENS AND INTERACTS WITH FAMILY. LESS IRRIATION AND AGITATION. PLANS IS FOR HER TO RETURN HOME TOMORROW. THE FAMILY STATES THAT HE HOUSE IS READY AND MOST OF THE NECESSITIES SHOULD ARRIVE TODAY. BED ALARM ON. CALL LIGHT WITHIN REACH. SITTER PRESENT. BED LOCKED AND IN THE LOWEST POSITION. WILL REPORT TO ONCOMING NURSE.
--- NOTE | 2023-07-13 04:50 | NUR ---
SHIFT SUMMARY ADMITTED FOR RESPIRATORY FAILURE. DNR CODE/COMFORT CARE. PLAN IS FOR DC HOME W/HOSPICE AND FAMILY. ON 5 LPM HIGH FLOW O2. 1 ASSIST TO BSC. SHE ACTUALLY SLEPT BETTER THIS NOC SHIFT THAN ON THE PREVIOUS SHIFT. SHE IS A&O TO SELF AND FAMILY, IMPULSIVE AND CONFUSED. NO NEW CONCERNS THIS SHIFT
--- NOTE | 2023-07-13 08:45 | NUR ---
PT RESP 5 PER MINUTE. NON RESPONSIVE OTHER THAN WHEN PIG TAIL IN HAIR ATTEMPTED TO BE MOVED FROM BEHIND HER HEAD AND SHE SLIGHTLY WINCED. FAMILY NOTIFIED OF CHANGE IN CONDITION
--- NOTE | 2023-07-13 12:40 | NUR ---
PT WITH NO RESP OR HEART BEAT AT 1228. VERIFIED WITH [facility]. FAMILY HAD JUST STEPPED OUT SO PHONE CALL MADE TO SON, MICHAELA. HE ARRIVED WITHIN SEVERAL MINUTES AND HE WAS NOTIFIED. MD NOTIFIED. PALLIATIVE CARE NOTIFIED. SON NOT SURE YET OF WHAT HOME HE WANTS.
--- NOTE | 2023-07-13 15:21 | NUR ---
ASSESSED GIL, SHE WAS HAVING LONG APNEIC PAUSES AND AGONAL BREATHING. HER SKIN IS COOL TO THE TOUCH, DIVERTED FAN FROM BLOWING DIRECTLY ON HER. DISCUSSED PROCESS OF DYING WITH FAMILY REVIEWED SYMPTOMS THAT ARE NORMAL BUT NOT ALWAYS PRESENT. PROVIDED A COPY OF "GONE FROM MY SIGHT". UPON DISCUSSION WITH FAMILY IT WOULD NOT BE IN GILS BEST INTEREST TO ATTEMPT TO GET HER HOME AT THIS POINT. SON WAS CONCERNED ABOUT WHAT WOULD BE NEEDED FROM HIM AFTER PT PASSES. I RELAYED THAT THEY WOULD NEED TO CHOOSE A HOME. PATIENT SHORTLY AFTERWARDS.
--- NOTE | 2023-07-13 15:23 | NUR ---
[facility] [employer] HERE TO PICK PT UP AT 1400. TO [facility] BY [facility]
== END 2023-07-13 12:28 | DRG 177 ==
LOC: ER 08:09 → MEDS 10:45 → ERHOLD 10:45 → PCU 10:45 → MEDS 10:45 → PCU 14:30 → MEDS 07-05 15:18
PROVIDERS: Internal Medicine; Nurse Practitioner Acute Care; Student in an Organized Health Care Education/Training Program; ADMIT Internal Medicine
PROC: XW033E5 Introduction of Remdesivir Anti-infective into Peripheral Vein, Percutaneous Approach, New Technology Group 5 (ICD-10-PCS; principal; 2023-06-29)
PROC: 3E0333Z Introduction of Anti-inflammatory into Peripheral Vein, Percutaneous Approach (ICD-10-PCS; 2023-06-29)
PROC: 5A09557 Assistance with Respiratory Ventilation, Greater than 96 Consecutive Hours, Continuous Positive Airway Pressure (ICD-10-PCS; 2023-06-29)
PROC: 8E0ZXY6 Isolation (ICD-10-PCS; 2023-06-29)
DX: U07.1 COVID-19 (principal); E43 Unspecified severe protein-calorie malnutrition; J12.82 Pneumonia due to coronavirus disease 2019; J96.22 Acute and chronic respiratory failure with hypercapnia; J96.21 Acute and chronic respiratory failure with hypoxia; J44.1 Chronic obstructive pulmonary disease with (acute) exacerbation; J44.0 Chronic obstructive pulmonary disease with (acute) lower respiratory infection; Z68.1 Body mass index [BMI] 19.9 or less, adult; Z51.5 Encounter for palliative care; Z66 Do not resuscitate; E87.6 Hypokalemia; E88.A Wasting disease (syndrome) due to underlying condition; F17.200 Nicotine dependence, unspecified, uncomplicated; F41.8 Other specified anxiety disorders; L89.152 Pressure ulcer of sacral region, stage 2; Z99.81 Dependence on supplemental oxygen; Z79.52 Long term (current) use of systemic steroids; Z79.899 Other long term (current) drug therapy; Z85.3 Personal history of malignant neoplasm of breast; Z88.8 Allergy status to other drugs, medicaments and biological substances; Z91.011 Allergy to milk products
CPT/HCPCS: 0202U; 36415; 71045; 71260; 80053; 80069; 82803; 83735; 83880; 84145; 84484; 85025; 85027; 85379; 93005; 93010; 94640; 94660; 94664; 94760; 94762; 96361; 96374; 96375; 97161; 97166; 97530; 99285-25; A9270; J0248; J1100; J1650; J7030; J7040; J7050; Q9967